=== PATIENT | female | born 1955 | race African-American/Black ===

== ENCOUNTER 2017-07-05 21:30 | Emergency (ER) | payer MEDICAID ==
[~2017-07-05] VITALS: Ht 177.8 cm; Wt 81.6 kg
[~2017-07-05 21:30] MED LIST: AZITHROMYCIN250 MG ORAL; COLACE100 MG ORAL; KEFLEX500 MG ORAL; PROMETHAZINE-C118 M1 ORAL; UNOBMED
--- NOTE | 2017-07-05 21:44 | Emergency Room Report ---
History of Present Illness General Chief Complaint: Pain Source: Patient, EMS Present Illness HPI Patient presents with complaints of left ankle pain Reports that she fell earlier this afternoon Cannot give me a specific time She also has some mild knee pain Denies any chest pain or shortness of breath denies any abdominal pain Denies any back pain Allergies: Coded Allergies: No Known Allergies (Unverified , 01/24/14) Patient History Past Medical History: see triage record Pertinent Family History: none Last Menstrual Period: none Now: No : 2 Reviewed Nursing Documentation: PMH: Agreed; PSxH: Agreed Nursing Documentation-PMH Hx Hypertension: Yes Hx Pacemaker: No Hx Gastrointestinal Problems: Yes - ULCERS Hx Neurological Problems: Yes - cerebral palsy Hx Cerebrovascular Accident: No - hypercholesterolemia Review of Systems All Other Systems: negative except mentioned in HPI Physical Exam Vital Signs Date Time Temp Pulse Resp B/P (MAP) Pulse Ox O2 Delivery O2 Flow Rate FiO2 07/05/17 21:24 98.0 86 18 150/76 97 Room Air 98.1 Sp02 EP Interpretation: reviewed, normal General Appearance: mild distress - Appears in pain Head: normocephalic, atraumatic Eyes: bilateral eye PERRL, bilateral eye EOMI ENT: hearing grossly normal, no angioedema, other - Poor dentition Neck: full range of motion, supple Respiratory: lungs clear, normal breath sounds Gastrointestinal: non tender, soft Musculoskeletal: other - Swelling and tenderness to the left lateral ankle, pulses intact foot is warm pain with any attempt of movement mild discomfort to the left knee laterally patella does not appear dislocated,, Skin: no rash, warm/dry, other - Swelling as above Lymphatic: no adenopathy Procedures Splinting Splinting : Consent: Verbal Location: left ankle Pre-Made Type: aircast Splint: sugar-tong Pre-Proc Neuro Vasc Exam: normal Post-Proc Neuro Vasc Exam: normal Patient Tolerated: Well Complications: None Medical Decision Making Diagnostic Impression: Primary Impression: Ankle sprain ER Course Given the patient's history and presentation imaging studies were obtained Patient has questionable demeanor at times Speaking to the family however patient is at baseline mental status Imaging studies did not show any obvious fracture Patient describing mechanical fall in nature and at this time was given splinting for close outpatient follow-up Other X-Ray Diagnostic Results Other X-Ray Diagnostic Results #1: X-Ray ordered: Left ankle # of Views/Limited Vs Complete: 4 View Indication: Pain EP Interpretation: Yes Interpretation: no dislocation, no soft tissue swelling, no fractures Impression: No acute disease Electronically Signed by: Desiree Rivera DO Other X-Ray Diagnostic Results #2: X-Ray ordered: Left knee # of Views/Limited Vs Complete: 3 View Indication: Pain EP Interpretation: Yes Interpretation: no dislocation, no soft tissue swelling, no fractures Impression: No acute disease Electronically Signed by: Desiree Rivera DO Other X-Ray Diagnostic Results #3: X-Ray ordered: Left hip # of Views/Limited Vs Complete: 3 View Indication: Pain EP Interpretation: Yes Interpretation: no dislocation, no soft tissue swelling, no fractures Impression: No acute disease Electronically Signed by: Desiree Rivera DO Last Vital Signs Date Time Temp Pulse Resp B/P (MAP) Pulse Ox O2 Delivery O2 Flow Rate FiO2 07/05/17 21:24 98.0 86 18 150/76 97 Room Air 98.1 Status: improved Disposition: HOME, SELF-CARE Condition: Improved Scripts Ibuprofen* (MOTRIN*) 600 Mg Tablet 600 MG ORAL Q8H PRN for For Pain, #20 TAB 0 Refills Prov: Desiree Rivera DO 07/05/17 Additional Instructions: Patient is provided with the discharge instructions notified to follow up with primary doctor in the next 2-3 days otherwise return to the er with any worsening symptoms. Please note that this report is being documented using [employer] technology. This can lead to erroneous entry secondary to incorrect interpretation by the dictating instrument. Desiree Rivera DO Jul 05, 2017 21:44
[2017-07-05] MEDS ORDERED: Ketorolac 60mg Inj IM ONE (21:45)
[2017-07-05] MEDS ORDERED: Norco 5mg/325mg tab ORAL ONE (21:45)
[2017-07-05 21:50] VITALS: BP 162/89
[2017-07-05] MEDS ORDERED: IBUPROFEN600 MG ORAL (23:34)
[2017-07-05 23:50] VITALS: BP 155/88
[2017-07-06 00:05] VITALS: BP 155/88
--- NOTE | 2017-07-06 11:38 | Diagnostic Imaging Report ---
Indications: hip pain Findings: Two views of the left hip were obtained. No acute fracture is demonstrated. Alignment of the hip is within normal limits. Soft tissues are unremarkable. Impression: Negative for acute injury.
--- NOTE | 2017-07-06 11:38 | Diagnostic Imaging Report ---
Indication: Pain 3 views of the left knee were obtained. Findings: No acute fracture, malalignment, or joint effusion are identified. Joint space is relatively well-maintained. Some joint space narrowing is present. Impression: Negative for acute injury. Mild arthrosis
--- NOTE | 2017-07-06 11:39 | Diagnostic Imaging Report ---
Indication: left ankle pain Comparison: None Findings: 3 views of the left ankle obtained. No acute fracture, malalignment, periostitis, or osteochondral defects are identified. Lateral soft tissue swelling is present.. Impression: No acute findings
== END 2017-07-06 00:05 | disposition home or self-care (01) ==
LOC: EDBD 21:30 → EMR 22:00
DX: S93.402A Sprain of unspecified ligament of left ankle, initial encounter (principal); M25.562 Pain in left knee; M25.552 Pain in left hip; W19.XXXA Unspecified fall, initial encounter; Y92.9 Unspecified place or not applicable; I10 Essential (primary) hypertension; G80.9 Cerebral palsy, unspecified
CPT/HCPCS: 73502; 96372; 99284

== ENCOUNTER 2017-09-30 14:19 | Emergency (ER) | payer MEDICAID ==
[~2017-09-30] VITALS: Ht 162.6 cm; Wt 77.1 kg
[~2017-09-30 14:19] MED LIST changes: +IBUPROFEN600 MG ORAL
[2017-09-30] MEDS ORDERED: Ketorolac 30mg Inj IM ONE (14:45)
[2017-09-30] MEDS ORDERED: Norco 5mg/325mg tab ORAL ONE (14:45)
--- NOTE | 2017-09-30 14:49 | Emergency Room Report ---
History of Present Illness General Chief Complaint: Multiple Trauma/Fall Source: Patient Present Illness HPI 61-year-old female patient presents to ER complaining of hip and back pain status post fall 2 days ago. Reports pain with ambulation. Reports that she slipped while getting out of the shower and fell onto her buttock. Denies hitting her head or loss consciousness. Denies dizziness or fainting. Denies history of syncopal episodes. Reports taking ibuprofen for relief of pain symptoms. Denies bowel or bladder incontinence. Denies radiation of pain symptoms. Denies fever, chest pain, shortness of breath, abdominal pain. no history of surgery. Allergies: Coded Allergies: No Known Allergies (Unverified , 01/24/14) Patient History Past Medical History: see triage record Reviewed Nursing Documentation: PMH: Agreed; PSxH: Agreed Nursing Documentation-PMH Past Medical History: No History, Except For Hx Hypertension: Yes Hx Pacemaker: No Hx Gastrointestinal Problems: Yes - ULCERS Hx Neurological Problems: Yes - CEREBRAL PALSY Hx Cerebrovascular Accident: No - hypercholesterolemia Review of Systems All Other Systems: negative except mentioned in HPI Physical Exam Vital Signs Date Time Temp Pulse Resp B/P (MAP) Pulse Ox O2 Delivery O2 Flow Rate FiO2 09/30/17 14:28 98.7 78 16 124/72 98 Room Air 98.8 Sp02 EP Interpretation: reviewed, normal General Appearance: well appearing, no apparent distress, alert, GCS 15, non- toxic Head: normocephalic, atraumatic Eyes: bilateral eye normal inspection, bilateral eye PERRL ENT: hearing grossly normal, normal pharynx, no angioedema, normal voice, uvula midline, moist mucus membranes Neck: full range of motion Respiratory: lungs clear, normal breath sounds, no rhonchi, no respiratory distress, no accessory muscle use, no wheezing, speaking full sentences Cardiovascular #1: regular rate, rhythm, no edema Gastrointestinal: non tender, soft, no mass, non-distended, no guarding, no rebound Musculoskeletal: back normal, digits/nails normal, gait/station normal, normal range of motion, no calf tenderness, pelvis stable, Grecia's Sign negative, tender - lumbar spine, no bony depression Neurologic: alert, oriented x3, responsive, motor strength/tone normal, SLR negative, sensory intact Psychiatric: mood/affect normal Reflexes: 2+ knee (R), 2+ knee (L) Skin: no rash Medical Decision Making PA Attestation Dr. Mauro is my supervising Physician whom patient management has been discussed with. Diagnostic Impression: Primary Impression: Fall Additional Impressions: Back pain Hip pain History of spinal fracture ER Course Pt presents to ED c/o back and hip pain. DDX considered but are not limited to sprain, strain, cauda equina, fracture, herniated disc, muscle spasm. Low suspicion for cauda equina, no bowel or bladder incontinence or retention. no leg length discrepancy,patient able to walk, low suspicion for dislocation. VITAL SIGNS are WNL, patient is afebrile Ordered pain medication, imaging, labs. ER COURSE: Pain medication provided. Imaging ordered. CT of the hips pelvis shows No acute findings. No hematoma identified. Arthrosis. CT lumbar spine shows Mild fracture involving the superior endplate of L1, probably old. Degenerative facet arthropathy within the lumbar spine. Arterial vascular disease Patient able ambulate independently, no focal neuro deficits, likely old fracture due to history of falls in the past. UA equivocal, patient asymptomatic, does not require treatment with antibiotics at this time. drink plenty of fluids, return to ER if symptoms present. patient okay for discharge home. Followup with pain management and/or PT. Request referral from PCP. Followup wtih PCP for further MRI and/or CT imaging as needed. DISCHARGE: -Rx provided for Tylenol -Rx provided for Lidocaine patch -Rx provided for Robaxin. SE may cause drowsiness, do not take prior to drinking , driving, or operating heacy machinery. At this time pt. is stable for d/c to home. At this time patient is resting comfortably, in no acute distress, nontoxic appearing, smiling and talking without difficulty. Will provide printed patient care instructions, and any necessary prescriptions. Patient instructed to follow with primary care provider for further treatment and referral as needed. Care plan and follow up instructions have been discussed with the patient prior to discharge. Patient reports understanding and agreement to treatment plan. Patient questions asked and answered. ER precautions given, patient instructed to return to ER immediately for any new or worsening of symptoms. - Please note that this Emergency Department Report was dictated using [employer] maintenance mechanic technology software, occasionally this can lead to erroneous entry secondary to interpretation by the dictation equipment. Labs Test 09/30/17 15:11 Urine Color Yellow Urine Appearance Cloudy Urine pH 6 (4.5-8.0) Urine Specific [place] 1.020 (1.005-1.035) Urine Protein 2+ (NEGATIVE) Urine Glucose (UA) Negative (NEGATIVE) Urine Ketones 2+ (NEGATIVE) Urine Occult Blood 1+ (NEGATIVE) Urine Nitrite Negative (NEGATIVE) Urine Bilirubin 1+ (NEGATIVE) Urine Ictotest Negative Urine Urobilinogen 1 MG/DL (0.0-1.0) Urine Leukocyte Esterase 3+ (NEGATIVE) Urine RBC 2-4 /HPF (0 - 2) Urine WBC 10-15 /HPF (0 - 2) Urine Squamous Epithelial Cells Many /LPF (NONE/OCC) Urine Bacteria Few /HPF (NONE) CT/MRI/US Diagnostic Results CT/MRI/US Diagnostic Results #1: Imaging Test Ordered: CT pelvis Impression There is no hematoma identified. There is no free fluid within the pelvis or abdomen. The retroperitoneum appears clear. The soft tissue structures about the pelvis and both hips appear unremarkable. There is vacuum phenomena within the sacroiliac joints consistent with arthrosis. Narrowing and osteophyte formation involving both hip joints noted. No acute fracture is identified. IMPRESSION: No acute findings. No hematoma identified. Other incidentals as above CT/MRI/US Diagnostic Results #2: Imaging Test Ordered: CT lumbar spine Impression Mild fracture involving the superior endplate of L1, probably old. Please correlate clinically. Degenerative facet arthropathy within the lumbar spine. Arterial vascular disease Last Vital Signs Date Time Temp Pulse Resp B/P (MAP) Pulse Ox O2 Delivery O2 Flow Rate FiO2 09/30/17 14:28 98.7 78 16 124/72 98 Room Air 98.8 Disposition: HOME, SELF-CARE Condition: Stable Scripts Lidocaine (Lidocaine) 1 Each Adh..patch 700 MG TP DAILY for 7 Days, #7 PATCH Prov: Alireza Coyle.A. 09/30/17 Methocarbamol* (ROBAXIN*) 500 Mg Tablet 500 MG PO TID, #21 TAB 0 Refills Prov: Alireza Coyle.A. 09/30/17 Acetaminophen* (TYLENOL EXTRA STRENGTH*) 500 Mg Tablet 500 MG ORAL Q8H PRN for Prn Headache/Temp > 101, #30 TAB 0 Refills Prov: Alireza Coyle.AChip 09/30/17 Patient Instructions: Back Pain, Adult, [place], Hip Pain Additional Instructions: Patient instructed to follow up with primary care provider 3-5 and discuss further referral and imaging at that time. Discuss referral to physical therapy, orthopedics, and pain management. Patient instructed on rest, ice and heat. Do not take muscle relaxant prior to drinking, driving, or operating heavy machinery. Take medications as directed. Patient questions asked and answered. ER precautions given, patient instructed to return to ER immediately for any new or worsening of symptoms. Alireza Coyle Sep 30, 2017 14:49
[2017-09-30 15:45] LABS: APPEARANCE,URINE CLOUDY; BILIRUBIN, URINE 1+ (NEGATIVE); GLUCOSE, URINE (UA) NEGATIVE (NEGATIVE); KETONES,URINE 2+ (NEGATIVE); LEUKOCYTE ESTERASE ,URINE 3+ (NEGATIVE); NITRITE,URINE NEGATIVE (NEGATIVE); PH,URINE 6 (4.5-8.0); PROTEIN,URINE 2+ (NEGATIVE); UROBILINOGEN,URINE 1 MG/DL (0.0-1.0)
[2017-09-30 15:46] LABS: COLOR,URINE YELLOW
--- NOTE | 2017-09-30 16:02 | Diagnostic Imaging Report ---
Indication: Patient complains of pelvic, hip and back pain. Status post fall 2 days ago per patient. Technique: Continuous helical transaxial imaging of the pelvis was obtained from the iliac crest to the pubic symphysis. Coronal 2-D reformats were also obtained. Study obtained in a Siemens sensation [address] Intravenous non-ionic contrast was administered. Total Dose length Product (DLP): 1060.[address] Dose Index Volume (CTDIvol): 13.5,22.02 mGy Comparison: None Findings: There is no hematoma identified. There is no free fluid within the pelvis or abdomen. The retroperitoneum appears clear. The soft tissue structures about the pelvis and both hips appear unremarkable. There is vacuum phenomena within the sacroiliac joints consistent with arthrosis. Narrowing and osteophyte formation involving both hip joints noted. No acute fracture is identified. IMPRESSION: No acute findings. No hematoma identified. Other incidentals as above The CT scanner at [facility] is accredited by the [employer] and the scans are performed using dose optimization techniques as appropriate to a performed exam including Automatic Exposure control.
--- NOTE | 2017-09-30 16:09 | Diagnostic Imaging Report ---
Indication: Back pain Technique: Continuous helical transaxial imaging of the lumbar spine was obtained from the lung bases to the pubic symphysis. No IV contrast was administered. Coronal 2-D reformats were also obtained. Study obtained in a Siemens sensation [address] Total Dose length Product (DLP): 1060.[address] Dose Index Volume (CTDIvol): 13.5,22.02 mGy Comparison: None Findings: There is a mild superior endplate fracture of the L1 vertebra. This appears old but please correlate clinically. No stenosis of the central canal significant foraminal stenosis appreciated. There is no malalignment. Hypertrophy and sclerosis of the lower lumbar facets demonstrated. Minimal endplate spurs are noted throughout the lumbar spine. Mild aortoiliac calcification noted. IMPRESSION: Mild fracture involving the superior endplate of L1, probably old. Please correlate clinically. Degenerative facet arthropathy within the lumbar spine. Arterial vascular disease The CT scanner at [facility] is accredited by the [employer] and the scans are performed using dose optimization techniques as appropriate to a performed exam including Automatic Exposure control.
[2017-09-30] MEDS ORDERED: Methocarbamol 500mg tab ORAL ONE (16:15)
[2017-09-30] MEDS ORDERED: TYLENOL EXTRA500 MG ORAL (17:22)
[2017-09-30] MEDS ORDERED: LIDOCAINE700 M1 TP (17:22)
[2017-09-30] MEDS ORDERED: ROBAXIN500 MG PO (17:22)
[2017-09-30 17:32] VITALS: BP 124/72
== END 2017-09-30 17:34 | disposition home or self-care (01) ==
LOC: EMR 14:54
DX: M54.5 Low back pain (principal); M25.551 Pain in right hip; W18.2XXA Fall in (into) shower or empty bathtub, initial encounter; Y93.E1 Activity, personal bathing and showering; Y92.002 Bathroom of unspecified non-institutional (private) residence as the place of occurrence of the external cause; G80.9 Cerebral palsy, unspecified; I10 Essential (primary) hypertension
CPT/HCPCS: 72131; 72192; 81003; 87086; 96372; 99284; J1885

== ENCOUNTER 2018-09-23 09:49 | Emergency (ER) | payer MEDICAID ==
[~2018-09-23] VITALS: Ht 162.6 cm; Wt 78.5 kg
[~2018-09-23 09:49] MED LIST changes: +LIDOCAINE700 M1 TP; +ROBAXIN500 MG PO; +TYLENOL EXTRA500 MG ORAL
[2018-09-23 10:06] VITALS: BP 155/83
--- NOTE | 2018-09-23 10:06 | NUR ---
ED Nurse Note: Patient walked in to ER with a niece due to back pain 10/ since she slipped and fell in shower 2 days ago. pt aao x4 but impaired speech due to cerebral palsy. pt and niece reported that pt is usually ambulatory with FWW but currently needs WC due to severe back pain. skin clean and intact and no bruises or visible wound noted. calm and cooperative but moaning and crying due to pain. pt is in gown and in teletypesetter monitor.
[2018-09-23] MEDS ORDERED: AMLODIPINE BES2.5 MG ORAL (10:08)
[2018-09-23] MEDS ORDERED: ASPIRIN81 MG ORAL (10:08)
[2018-09-23] MEDS ORDERED: ZANTAC150 MG ORAL (10:08)
[2018-09-23] MEDS ORDERED: CLARITIN5 MG ORAL (10:08)
--- NOTE | 2018-09-23 10:11 | Emergency Room Report ---
History of Present Illness General Chief Complaint: Lower Back Pain or Injury Source: Family Member, Medical Record Present Illness HPI Patient presents with complaints of pain to the mid lower and left lower back area reports that she fell ' Couple of days ago' Reports that she lost her balance and fell backwards Patient has history of underlying cerebral palsy Denies any loss of control of bowel or urinations patient has a Tingling sensation in the left lower back denies any radiation to the leg However having increased discomfort with trying to ambulate denies any chest pain or shortness of breath Denies any lapse of consciousness Allergies: Coded Allergies: No Known Allergies (Unverified , 01/24/14) Patient History Past Medical History: see triage record Pertinent Family History: none Reviewed Nursing Documentation: PMH: Agreed; PSxH: Agreed Nursing Documentation-PMH Past Medical History: No History, Except For Hx Hypertension: Yes Hx Pacemaker: No Hx Gastrointestinal Problems: Yes Hx Neurological Problems: Yes Hx Cerebrovascular Accident: No - hypercholesterolemia Review of Systems All Other Systems: negative except mentioned in HPI Physical Exam Vital Signs Date Time Temp Pulse Resp B/P (MAP) Pulse Ox O2 Delivery O2 Flow Rate FiO2 09/23/18 09:57 98.4 81 16 155/83 (107) 99 Room Air Sp02 EP Interpretation: reviewed, normal General Appearance: mild distress - Appears in pain Head: normocephalic, atraumatic Eyes: bilateral eye PERRL, bilateral eye EOMI ENT: normal pharynx Neck: full range of motion, supple, thyroid normal Respiratory: lungs clear, no respiratory distress, no retraction Cardiovascular #1: regular rate, rhythm Gastrointestinal: non tender, soft Musculoskeletal: other - Uncomfortable on palpation paraspinal L3-L4 also left- sided posterior superior iliac crest region, history of cervical palsy with underlying deficit including flexors of the right fingers Neurologic: alert, oriented x3, responsive Skin: no rash, warm/dry Lymphatic: no adenopathy Medical Decision Making Diagnostic Impression: Primary Impression: Fracture of lumbar spine ER Course Given the patient's history and presentation imaging studies are initiated patient has acutely uncomfortable with pain Denies any lightheadedness or dizziness provides a fairly purely mechanical fall nature CT imaging does reveal L3 subacute fracture patient's L1 fracture from previous also shows Some continued progression this is discussed with family patient provided with referral for orthopedic follow-up there are no signs of neurosurgical changes patient stable for close initial conservative follow-up CT/MRI/US Diagnostic Results CT/MRI/US Diagnostic Results : Impression L-spine CTIMPRESSION: L3 superior endplate fracture mild in degree, probably subacute in age. Correlate clinically. Progression of a superior endplate fracture at L1 present on the 2018 examination. Superimposed degenerative changes of the lumbar spine as described above. Atherosclerotic vascular disease CT pelvicIMPRESSION: No acute injury identified. 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 Incidental small umbilical hernia containing fat Last Vital Signs Date Time Temp Pulse Resp B/P (MAP) Pulse Ox O2 Delivery O2 Flow Rate FiO2 09/23/18 10:06 98.4 63 16 155/83 99 Room Air Status: improved Disposition: HOME, SELF-CARE Condition: Improved Scripts Methocarbamol* (ROBAXIN-750*) 750 Mg Tablet 750 MG PO TID, #21 TAB 0 Refills Prov: Desiree Rivera DO 09/23/18 Hydrocodone Bit/Acetaminophen 5-325* (NORCO 5-325*) 1 Each Tablet 1 TAB ORAL Q12HR PRN for For Pain, #12 TAB 0 Refills Prov: Desiree Rivera DO 09/23/18 Additional Instructions: Patient is provided with the discharge instructions notified to follow up with primary doctor in the next 2-3 days otherwise return to the er with any worsening symptoms. Please note that this report is being documented using [employer] technology. This can lead to erroneous entry secondary to incorrect interpretation by the dictating instrument. Desiree Rivera DO Sep 23, 2018 10:11
[2018-09-23] MEDS ORDERED: Ketorolac 60mg Inj IM ONE (10:15)
[2018-09-23] MEDS ORDERED: Tylenol #3 tab (300mg/30mg) ORAL ONE (10:15)
--- NOTE | 2018-09-23 10:30 | NUR ---
ED Nurse Note: Called CT for reminder.
--- NOTE | 2018-09-23 10:35 | NUR ---
ED Nurse Note: pt went down for CT in stable condition.
--- NOTE | 2018-09-23 10:51 | NUR ---
ED Nurse Note: pt came back from CT in stable condition.
--- NOTE | 2018-09-23 11:21 | NUR ---
ED Nurse Note: water was provided per pt's request.
--- NOTE | 2018-09-23 11:36 | Diagnostic Imaging Report ---
Indication: Back pain Technique: Continuous helical transaxial imaging of the lumbar spine was obtained. No IV contrast was administered. Coronal 2-D reformats were also obtained. Study obtained in a Siemens sensation [address] Total Dose length Product (DLP): 676.[address] Dose Index Volume (CTDIvol): 26.01 mGy Comparison: CT lumbar 09/30/2017 Findings: There are vertebral endplate osteophytes and scalloping deformities of several of the vertebral endplates particularly at the superior endplate of L3 and L1. Schmorl's nodes are noted. The vertebral endplates are moderately collapsed at both these levels. The changes at L1 were present previously but have advanced or progressed slightly since that time. The L3 superior endplate fracture is new compared to last study from 2018. The appearance is suggestive of subacute to chronic injury. Please correlate clinically. There is no retropulsion identified. There is no evidence of neural compression or thecal sac compression. Hypertrophied facets demonstrated at multiple levels. There is suggestion of neural foraminal stenosis at L4-5. Central stenosis also likely present at this level. Aortoiliac calcifications are present. Cholecystectomy clips are noted. No hematoma or paravertebral or paraspinous edema identified. IMPRESSION: L3 superior endplate fracture mild in degree, probably subacute in age. Correlate clinically. Progression of a superior endplate fracture at L1 present on the 2018 examination. Superimposed degenerative changes of the lumbar spine as described above. Atherosclerotic vascular disease The CT scanner at [facility] is accredited by the [employer] and the scans are performed using dose optimization techniques as appropriate to a performed exam including Automatic Exposure control.
--- NOTE | 2018-09-23 11:39 | Diagnostic Imaging Report ---
Indication: Pelvic pain. Trauma Technique: Continuous helical transaxial imaging of the pelvis was obtained from the iliac crest to the pubic symphysis. Coronal 2-D reformats were also obtained. Study obtained in a Siemens sensation [address] Intravenous non-ionic contrast was administered. Total Dose length Product (DLP): 439.[address] Dose Index Volume (CTDIvol): 15.15 mGy Comparison: None Findings: No acute fractures identified. Degenerative arthrosis of the sacroiliac joints and both hips demonstrated with narrowing of the joint space, subchondral sclerosis and osteophytes. There is no evidence of a hip fracture. Lumbar spine as discussed on the CT lumbar report. There is an incidental umbilical hernia containing fat. Appendix is normal. Uterus noted. Urinary bladder is nondistended. There is no free fluid in the pelvis identified. IMPRESSION: No acute injury identified. 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
--- NOTE | 2018-09-23 11:58 | NUR ---
ED Nurse Note: ERMD at bedside discussing CT results.
[2018-09-23] MEDS ORDERED: ROBAXIN-750750 MG PO (12:30)
[2018-09-23] MEDS ORDERED: NORCO 5-325 TA1 EACH ORAL (12:30)
--- NOTE | 2018-09-23 12:40 | NUR ---
ER DISCHARGE NOTE: Patient is cleared to be discharged per ERMD after taking Robaxin and Zofran, pt is aox4, on room air, with stable vital signs. pt was given dc and prescription instructions, pt was able to verbalize understanding, pt id band removed. pt is assisted by niece to leave the unit. pt took all belongings.
[2018-09-23 12:41] VITALS: BP 142/76
[2018-09-23] MEDS ORDERED: Methocarbamol 750mg tab ORAL ONE (12:45)
== END 2018-09-23 12:42 | disposition home or self-care (01) ==
LOC: EMR 10:05
DX: S32.039A Unspecified fracture of third lumbar vertebra, initial encounter for closed fracture (principal); W19.XXXA Unspecified fall, initial encounter; Y92.9 Unspecified place or not applicable; I10 Essential (primary) hypertension; E78.00 Pure hypercholesterolemia, unspecified; G80.9 Cerebral palsy, unspecified; K42.9 Umbilical hernia without obstruction or gangrene; M16.0 Bilateral primary osteoarthritis of hip
CPT/HCPCS: 72131; 72192; 96372; 99284